=== PATIENT | female | born 1985 | race Caucasian/White ===

== ENCOUNTER 2016-10-07 13:24 | Observation (INO) | payer MEDICAID, OTHER ==
[2016-10-07] MEDS ORDERED: ONDANSETRON 4 MG/2 ML VIAL ONE (13:50)
[2016-10-07] MEDS ORDERED: ONDANSETRON 4 MG/2 ML VIAL IVP ONE (13:53)
[2016-10-07] MEDS ORDERED: NS 1,000 ML IV ONE ×3 (13:53→15:04)
--- NOTE | 2016-10-07 13:56 | EDPHY ---
H & P Time Seen by Provider: 10/07/16 13:46 HPI/ROS: CHIEF COMPLAINT: Nausea and vomiting and abdominal pain HISTORY OF PRESENT ILLNESS: This 31-year-old woman ate wild [place] and thought it was a russula. The patient awakened today at 11:00 a.m. with severe abdominal pain fever chills nausea vomiting and diarrhea. Worse with any attempt to eat or drink anything. Abdominal pain does not radiate. Symptoms moderate to severe. REVIEW OF SYSTEMS: Eye: no change in vision ENT: no sore throat Cardiac: no chest pain or syncope Pulmonary: no cough or SOB Abdomen: HPI Musculoskeletal: no back pain Skin: no rash Neuro: no headache Constitutional: no fever : no urinary symptoms A comprehensive 10 point review of systems is otherwise negative aside from elements mentioned in the history of present illness. PAST MEDICAL HISTORY: Negative Social history: No alcohol, wild mushrooms as noted above. Denies . General Appearance: Alert and conversant, cooperative. Eyes: No scleral icterus. ENT, Mouth: Normal mucous membranes. Respiratory: Normal respiratory effort, breath sounds equal, lungs are clear to auscultation. Cardiovascular: Regular rate and rhythm. Gastrointestinal: Mild diffuse tenderness but no rebound or guarding. Neurological: Alert and oriented x3. Normally conversant. Face symmetric, normal movement and sensation in all extremities. Skin: Warm and dry, no rashes. Musculoskeletal: No peripheral edema and no joint swelling. Psychiatric: Not agitated. Emergency Department course/MDM: Zofran 4 mg IV and normal saline 2 L IV. Labs to include liver function tests and protime. Consult with poison Center. Initial blood pressure noted at 76/51. [facility] case # is [id number]. 1503: Called [facility] again. at 1453. 1515: Still nauseated, Reglan 10 mg IV. [facility] does not have an on- call clinical editor today. They recommended supportive care and no specific antidote. Admission for continued nausea and hypotension. Discussed with [facility] at this time. Smoking Status: Never smoked Constitutional: Initial Vital Signs Temperature (C) 36.5 C 10/07/16 13:30 Heart Rate 61 10/07/16 13:30 Respiratory Rate 16 10/07/16 13:30 O2 Sat (%) 99 10/07/16 13:30 O2 Delivery Mode Room Air Allergies/Adverse Reactions: No Known Allergies Allergy (Unverified 10/07/16 13:29) Home Medications: Medication Instructions Recorded Acetaminophen [Tylenol 325mg (*)] 325 mg PO DAILY PRN 10/07/16 Herbals/Supplements -Info Only 1 ea PO DAILY 10/07/16 Sertraline HCl [Zoloft 100mg (*)] 100 mg PO DAILY 10/07/16 Medical Decision Making Differential Diagnosis: Differential diagnosis considered for nausea and vomiting including but not limited to mushroom toxicity, gastroenteritis, gastritis, appendicitis, and medication side effect. - Data Points Laboratory Results: Laboratory Results 10/07/16 13:50 10/07/16 13:50 10/07/16 10/07/16 10/07/16 13:50 13:50 13:50 WBC RBC Hgb Hct MCV MCH MCHC RDW Plt Count MPV Neut % (Auto) Lymph % (Auto) Dickens % (Auto) Eos % (Auto) Baso % (Auto) Nucleat RBC Rel Count Absolute Neuts (auto) Absolute Lymphs (auto) Absolute Monos (auto) Absolute Eos (auto) Absolute Basos (auto) Absolute Nucleated RBC Immature Gran % Immature Gran # PT 13.1 SEC SEC (12.0-15.0) INR 1.00 (0.83-1.16) APTT 22.5 SEC L SEC (23.0-38.0) Sodium 140 mEq/L mEq/L (134-144) Potassium 4.8 mEq/L mEq/L (3.5-5.2) Chloride 107 mEq/L mEq/L (97-110) Carbon Dioxide 19 mEq/l L mEq/l (22-31) Anion Gap 14 mEq/L mEq/L (8-16) BUN 21 mg/dL mg/dL (7-23) Creatinine 1.2 mg/dL H mg/dL (0.6-1.0) Estimated GFR 52 Glucose 140 mg/dL H mg/dL (70-100) Calcium 9.7 mg/dL mg/dL (8.5-10.4) Total Bilirubin 0.9 mg/dL mg/dL (0.1-1.4) Conjugated Bilirubin 0.4 mg/dL mg/dL (0.0-0.5) Unconjugated Bilirubin 0.5 mg/dL mg/dL (0.0-1.1) AST 28 IU/L IU/L (14-46) ALT 27 IU/L IU/L (9-52) Alkaline Phosphatase 48 IU/L IU/L (38-126) Total Protein 8.1 g/dL g/dL (6.3-8.2) Albumin 4.7 g/dL g/dL (3.5-5.0) Beta HCG, Qual NEGATIVE 10/07/16 13:50 WBC 13.26 10^3/uL H 10^3/uL (3.80-9.50) RBC 4.96 10^6/uL 10^6/uL (4.18-5.33) Hgb 15.6 g/dL g/dL (12.6-16.3) Hct 46.6 % % (38.0-47.0) MCV 94.0 fL fL (81.5-99.8) MCH 31.5 pg pg (27.9-34.1) MCHC 33.5 g/dL g/dL (32.4-36.7) RDW 12.3 % % (11.5-15.2) Plt Count 279 10^3/uL 10^3/uL (150-400) MPV 9.6 fL fL (8.7-11.7) Neut % (Auto) 90.2 % H % (39.3-74.2) Lymph % (Auto) 3.9 % L % (15.0-45.0) Dickens % (Auto) 5.0 % % (4.5-13.0) Eos % (Auto) 0.2 % L % (0.6-7.6) Baso % (Auto) 0.2 % L % (0.3-1.7) Nucleat RBC Rel Count 0.0 % % (0.0-0.2) Absolute Neuts (auto) 11.97 10^3/uL H 10^3/uL (1.70-6.50) Absolute Lymphs (auto) 0.52 10^3/uL L 10^3/uL (1.00-3.00) Absolute Monos (auto) 0.66 10^3/uL 10^3/uL (0.30-0.80) Absolute Eos (auto) 0.02 10^3/uL L 10^3/uL (0.03-0.40) Absolute Basos (auto) 0.03 10^3/uL 10^3/uL (0.02-0.10) Absolute Nucleated RBC 0.00 10^3/uL 10^3/uL (0-0.01) Immature Gran % 0.5 % % (0.0-1.1) Immature Gran # 0.06 10^3/uL 10^3/uL (0.00-0.10) PT INR APTT Sodium Potassium Chloride Carbon Dioxide Anion Gap BUN Creatinine Estimated GFR Glucose Calcium Total Bilirubin Conjugated Bilirubin Unconjugated Bilirubin AST ALT Alkaline Phosphatase Total Protein Albumin Beta HCG, Qual Medications Given: Discontinued Medications Sodium Chloride (Ns) 1,000 mls @ 0 mls/hr IV ONCE ONE PRN Reason: Wide Open Stop: 10/07/16 13:54 Last Admin: 10/07/16 13:54 Dose: 1,000 mls Sodium Chloride (Ns) 1,000 mls @ 0 mls/hr IV EDNOW ONE; Wide Open PRN Reason: Protocol Stop: 10/07/16 13:57 Last Admin: 10/07/16 14:50 Dose: 1,000 mls Sodium Chloride (Ns) 1,000 mls @ 0 mls/hr IV EDNOW ONE; Wide Open PRN Reason: Protocol Stop: 10/07/16 15:05 Last Admin: 10/07/16 15:24 Dose: 1,000 mls Metoclopramide HCl (Reglan Injection) 10 mg IVP EDNOW ONE Stop: 10/07/16 15:27 Last Admin: 10/07/16 15:31 Dose: 10 mg Ondansetron HCl (Zofran) 4 mg IVP EDNOW ONE Stop: 10/07/16 13:54 Last Admin: 10/07/16 13:55 Dose: 4 mg Departure - Departure Disposition: [facility] Acute Clinical Impression: Nausea & vomiting Qualifiers: Vomiting type: unspecified Vomiting Intractability: unspecified Qualified Code( s): R11.2 - Nausea with vomiting, unspecified Condition: Good
[2016-10-07 14:01] LABS: % IMMATURE GRANULYOCYTES 0.5 % (0.0-1.1); ABSOLUTE IMMATURE GRANULOCYTES 0.06 10^3/uL (0.00-0.10); ADD DIFF? NO; ADD MORPH? NO; ADD SCAN? NO; ATYPICAL LYMPHOCYTE FLAG 0 (0-99); FRAGMENT RBC FLAG 0 (0-99); HEMATOCRIT 46.6 % (38.0-47.0); HEMOGLOBIN 15.6 g/dL (12.6-16.3); LEFT SHIFT FLG 60 (0-99); LIPEMIA HEMOLYSIS FLAG 80 (0-99); MEAN CELL HEMOGLOBIN 31.5 pg (27.9-34.1); MEAN CELL HEMOGLOBIN CONCENTR. 33.5 g/dL (32.4-36.7); MEAN PLATELET VOLUME 9.6 fL (8.7-11.7); PLATELET CLUMPS FLAG 0 (0-99); PLATELET COUNT 279 10^3/uL (150-400); RED BLOOD CELL COUNT 4.96 10^6/uL (4.18-5.33); RED CELL DISTRIBUTION WIDTH 12.3 % (11.5-15.2)
[2016-10-07 14:10] LABS: PROTIME(PATIENT) 13.1 SEC (12.0-15.0)
[2016-10-07 14:11] LABS: ALANINE AMINOTRANSFERASE 27 IU/L (9-52); ALBUMIN 4.7 g/dL (3.5-5.0); ALKALINE PHOSPHATASE 48 IU/L (38-126); ANION GAP 14 mEq/L (8-16); APTT 22.5 SEC (23.0-38.0); ASPARTATE AMINOTRANSFERASE 28 IU/L (14-46); BILIRUBIN,TOTAL 0.9 mg/dL (0.1-1.4); BILIRUBIN-CONJUGATED 0.4 mg/dL (0.0-0.5); BILIRUBIN-UNCONJUGATED 0.5 mg/dL (0.0-1.1); CALCIUM 9.7 mg/dL (8.5-10.4); CARBON DIOXIDE 19 mEq/l (22-31); CHLORIDE 107 mEq/L (97-110); CREATININE 1.2 mg/dL (0.6-1.0); GLOMERULAR FILTRATION RATE 52; GLUCOSE 140 mg/dL (70-100); POTASSIUM 4.8 mEq/L (3.5-5.2); SODIUM 140 mEq/L (134-144); TOTAL PROTEIN 8.1 g/dL (6.3-8.2)
[2016-10-07] MEDS ORDERED: METOCLOPRAMIDE 10 MG/2 ML VIAL IVP ONE (15:26)
[2016-10-07] MEDS ORDERED: ONDANSETRON 4 MG/2 ML VIAL IVP PRN (16:07)
--- NOTE | 2016-10-07 17:04 | GHP ---
[f rep st] PREOP HISTORY AND PHYSICAL DATE OF ADMISSION: 10/07/2016 CHIEF COMPLAINT: Mushroom ingestion, nausea, vomiting, hypotension. HISTORY OF PRESENT ILLNESS: A 31-year-old female with past medical history of anxiety, who presents with nausea, vomiting, and diarrhea after eating a mushroom last night. She states that she [place] and checked with her friends to see if it was okay, and had it at home last night. It was thought to be a Russula. She awoke this morning at 11 a.m. with severe abdominal pain, fevers, chills, diffuse diarrhea, and nonbloody emesis. Pain was worse when she tried to eat or drink anything. Also reports myalgias, mild headache. REVIEW OF SYSTEMS: I completed a 10-point review of systems, negative except as noted in HPI. PAST MEDICAL HISTORY: Anxiety. HOME MEDICATIONS: Sertraline. 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 No tobacco, alcohol, or illicits. FAMILY HISTORY: None. PAST SURGICAL HISTORY: None. ALLERGIES: No known drug allergies. HOME MEDICATIONS: Herbal supplement, sertraline 100 mg daily, and Tylenol. PHYSICAL EXAMINATION: VITAL SIGNS: Temperature 36.5, blood pressure 96/57 (75/ 37 on admission), heart rate in the 50s to 60s, respirations 16, 97% on room air. GENERAL: Pale, ill appearing, but no acute distress. HEENT: PERRLA. Dry mucous membranes. Oropharynx clear. CV: Regular rate and rhythm. No murmurs, gallops, or rubs. LUNGS: Clear to auscultation bilaterally. ABDOMEN : Soft, nontender, nondistended. Positive bowel sounds throughout. : No suprapubic tenderness. MUSCULOSKELETAL: 5/5 upper and lower extremity strength. NEURO: 2-12 intact. PSYCH: Flat affect. Alert and oriented x3. LABORATORY DATA: WBC 13, hemoglobin 15, hematocrit 46, platelets 279. INR 1, PT 13, PTT 22. Sodium 140, potassium 4.8, chloride 107, carbon dioxide 19, creatinine 1.2, BUN 21, glucose 140. LFTs within normal. Negative test. ASSESSMENT AND PLAN: 1. Nausea, vomiting, diarrhea: Secondary to mushroom ingestion. Suspected to be a Russula. Toxicology has been called. A animal nutrition teacher has been contacted, but no return call. Will continue supportive care with IV fluids and p.r.n. antiemetics. 2. Hypotension: Secondary to mushroom ingestion, nausea, vomiting, and diarrhea. Baseline SBP low-100s. 3. Acute kidney injury: Creatinine 1.2. Do not know baseline, but we will rehydrate and check in the morning. 4. Leukocytosis: Likely stress reaction given acute nausea and vomiting. 5. Diet: Clears, advance as tolerated. 6. Deep venous thrombosis prophylaxis: Low risk. DISPOSITION: Patient warrants observation admission given acute hypotension, nausea, and vomiting, warranting IV fluids. /[id number]/MODL MTDD
[2016-10-07] MEDS: ACETAMINOPHEN 325 MG TAB PO PRN (20:35)
[2016-10-08] MEDS: NS 1,000 ML IV SCH ×2 (00:25→09:55)
[2016-10-08 04:29] VITALS: RESP 16
[2016-10-08] MEDS: ACETAMINOPHEN 325 MG TAB PO PRN (04:32)
[2016-10-08 05:55] LABS: HEMATOCRIT 33.3 % (38.0-47.0); HEMOGLOBIN 11.1 g/dL (12.6-16.3); MEAN CELL HEMOGLOBIN 31.7 pg (27.9-34.1); MEAN CELL HEMOGLOBIN CONCENTR. 33.3 g/dL (32.4-36.7); MEAN CELL VOLUME 95.1 fL (81.5-99.8); RED BLOOD CELL COUNT 3.5 10^6/uL (4.18-5.33); RED CELL DISTRIBUTION WIDTH 12.5 % (11.5-15.2)
[2016-10-08 06:05] LABS: ALANINE AMINOTRANSFERASE 22 IU/L (9-52); ALBUMIN 2.7 g/dL (3.5-5.0); ALKALINE PHOSPHATASE 34 IU/L (38-126); ANION GAP 7 mEq/L (8-16); ASPARTATE AMINOTRANSFERASE 19 IU/L (14-46); BILIRUBIN,TOTAL 0.4 mg/dL (0.1-1.4); CALCIUM 7.9 mg/dL (8.5-10.4); CARBON DIOXIDE 18 mEq/l (22-31); CHLORIDE 112 mEq/L (97-110); CREATININE 0.6 mg/dL (0.6-1.0); GLOMERULAR FILTRATION RATE > 60; GLUCOSE 84 mg/dL (70-100); POTASSIUM 3.9 mEq/L (3.5-5.2); SODIUM 137 mEq/L (134-144); TOTAL PROTEIN 5.1 g/dL (6.3-8.2)
[2016-10-08 08:08] VITALS: BP 90/52; PULSE 76; TEMP 98; O2SAT 97
[2016-10-08] MEDS: ONDANSETRON DISINTEGRATING 4 MG TAB PO PRN ×2 (09:55→13:44)
--- NOTE | 2016-10-08 18:43 | GDS ---
[f rep st] DISCHARGE SUMMARY DISCHARGE DIAGNOSIS: Poisonous mushroom ingestion. HOSPITAL COURSE: The patient is a 31-year-old female, who developed acute onset of nausea, vomiting , and diarrhea after eating a [place]. She checked with her friend s to see if it would be okay, and they said they thought it would be, so she took it home and ate it . We are now suspicious that it was a Russula. She woke up at 11 o'clock this morning with severe abdominal pain, fevers, chills, diarrhea, nonbloody emesis. She was admitted to the hospital for ob servation and hydration. Her situation did improve overnight, and she is feeling better and ready t o go home. She does have some new laboratory abnormalities today, which probably need followup, inc luding a worsening anemia from hematocrit of 46 down to 33 and her albumin went from 4.7 to 2.7. So me of this might be hydration affect. Her creatinine went from 1.2 down to 0.6. She has a mild met abolic acidosis. I do anticipate all this will resolve as she is clinically much improved. I am re commending follow-up laboratory testing with her primary care in 1 week's time to ensure all this javier s normalized. DISCHARGE MEDICATIONS: Please see computer record for full detailed list. There are no new medicat ions given at time of hospital discharge. ADDITIONAL DISCHARGE INSTRUCTIONS: Repeat labs in 1 week, including CBC, Chem-7, and LFTs. Patient was seen and examined by me on day of discharge. /[id number]/MODL
[2016-10-09] MEDS ORDERED: SERTRALINE HCL 100 MG TAB PO SCH (09:00)
== END 2016-10-08 14:24 | disposition home or self-care (01) ==
LOC: F1N 16:01
PROVIDERS: ADMIT Internal Medicine; ATTEND Internal Medicine
PROC: 3E0337Z Introduction of Electrolytic and Water Balance Substance into Peripheral Vein, Percutaneous Approach (ICD-10-PCS; principal; 2016-10-07)
DX: T62.0X1A Toxic effect of ingested mushrooms, accidental (unintentional), initial encounter (principal); R11.2 Nausea with vomiting, unspecified; R19.7 Diarrhea, unspecified; I95.9 Hypotension, unspecified; E87.2 Acidosis; D72.829 Elevated white blood cell count, unspecified; D64.9 Anemia, unspecified; N17.9 Acute kidney failure, unspecified; E86.9 Volume depletion, unspecified; F41.9 Anxiety disorder, unspecified
CPT/HCPCS: 96361; 96374; 96375; 99285; G0378; J2405; J2765